=== PATIENT | female | born 1990 | race Two or more races ===

== ENCOUNTER 2022-07-16 14:38 | Emergency (ER) | payer OTHER ==
[~2022-07-16] VITALS: Ht 152.4 cm; Wt 61.2 kg
[2022-07-16] MEDS ORDERED: PRENATAL 19 CH1 EAC1 PO (14:53)
== END 2022-07-16 20:04 | disposition home or self-care (01) ==
LOC: ER 14:38
DX: O26.891 Other specified pregnancy related conditions, first trimester (principal); Z3A.11 11 weeks gestation of pregnancy; R07.81 Pleurodynia

== ENCOUNTER 2022-09-17 08:11 | Outpatient (CLI) | payer OTHER ==
[~2022-09-17 08:11] MED LIST: PRENATAL 19 CH1 EAC1 PO
== END 2022-09-17 10:00 | disposition home or self-care (01) ==
LOC: PRENATAL 08:11
PROVIDERS: ATTEND Obstetrics & Gynecology Maternal & Fetal Medicine
DX: O35.9XX0 Maternal care for (suspected) fetal abnormality and damage, unspecified, not applicable or unspecified (principal); O35.3XX0 Maternal care for (suspected) damage to fetus from viral disease in mother, not applicable or unspecified; Z3A.19 19 weeks gestation of pregnancy

== ENCOUNTER 2022-10-23 11:14 | Emergency (ER) | payer OTHER ==
[~2022-10-23] VITALS: Ht 152.4 cm; Wt 61.7 kg
[2022-10-23] MEDS ORDERED: FLUOXETINE HCL20 MG PO (12:58)
== END 2022-10-23 16:36 | disposition home or self-care (01) ==
LOC: ER 11:14
DX: O21.9 Vomiting of pregnancy, unspecified (principal); Z3A.25 25 weeks gestation of pregnancy; Z20.822 Contact with and (suspected) exposure to COVID-19

== ENCOUNTER 2022-12-23 15:39 | Outpatient (CLI) | payer OTHER ==
[~2022-12-23 15:39] MED LIST changes: +FLUOXETINE HCL20 MG PO
== END 2022-12-23 16:55 | disposition home or self-care (01) ==
LOC: PRENATAL 15:39
PROVIDERS: ATTEND Obstetrics & Gynecology Maternal & Fetal Medicine
DX: O26.849 Uterine size-date discrepancy, unspecified trimester (principal); O36.8199 Decreased fetal movements, unspecified trimester, other fetus; Z3A.33 33 weeks gestation of pregnancy

== ENCOUNTER 2023-02-09 14:45 | Inpatient (IN) | payer OTHER ==
[~2023-02-09] VITALS: Ht 152.4 cm; Wt 67.6 kg
[2023-02-09] MEDS ORDERED: VALTREX1000 MG PO (15:15)
== END 2023-02-11 11:45 | disposition home or self-care (01) | DRG 807 ==
LOC: LDR 14:45 → OB/GYN 14:45
PROVIDERS: Obstetrics & Gynecology; ADMIT Obstetrics & Gynecology; ATTEND Obstetrics & Gynecology
PROC: 10E0XZZ Delivery of Products of Conception, External Approach (ICD-10-PCS; principal; 2023-02-09)
PROC: 0UQG7ZZ Repair Vagina, Via Natural or Artificial Opening (ICD-10-PCS; 2023-02-09)
PROC: 4A1HXCZ Monitoring of Products of Conception, Cardiac Rate, External Approach (ICD-10-PCS; 2023-02-09)
DX: O71.4 Obstetric high vaginal laceration alone (principal); Z37.0 Single live birth; Z3A.40 40 weeks gestation of pregnancy; Z20.822 Contact with and (suspected) exposure to COVID-19